=== PATIENT | female | born 1980 | race Caucasian/White ===

== ENCOUNTER 2021-06-28 17:14 | Emergency (ER) | payer OTHER, SELFPAY ==
[2021-06-28 17:35] VITALS: BP 116/69; PULSE 112; RESP 20; TEMP 37.9; O2SAT 98
--- NOTE | 2021-06-28 17:48 | ED.URI ---
HPI - URI/Sore Throat General Stated Complaint: Sore Throat/Fever/Cough Time Seen by Provider: 06/28/21 18:29 Source: patient and RN notes reviewed Mode of arrival: ambulatory Limitations: no limitations History of Present Illness HPI Narrative: 40-year-old female presents with concern for fever, sore throat, cough, body aches. She reports exposure to Covid. She reports she is a smoker. She reports no relief with [id number] medications. She denies shortness of breath, nausea, vomiting, diarrhea. MD elicited complaint: cough and sore throat Related Data Allergies Allergy/AdvReac Type Severity Reaction Status Date / Time adhesive Allergy Rash Verified 06/28/21 18:38 egg Allergy Hives Verified 06/28/21 18:38 latex Allergy Rash Verified 06/28/21 18:38 Review of Systems Review of Systems: CONSTITUTIONAL: Reports malaise, fever. Denies chills, sweats EYES: Denies visual changes, redness, or discharge. ENT: Reports rhinorrhea, sore throat, ear pain. Denies congestion, sinus pain CARDIOVASCULAR: Denies chest pain, palpitations, or edema. RESPIRATORY: Reports cough. Denies dyspnea. GASTROINTESTINAL: Denies abdominal pain, nausea, vomiting, diarrhea SKIN: Denies rash or itching. MUSCULOSKELETAL: Reports myalgia. NEUROLOGIC: Denies headache. All systems reviewed & are unremarkable except as noted in HPI and below PMFSH Comments At time of signature, agree with nursing past medical, surgical, social and family history. There is no relevant family history pertinent to the presenting complaint Exam Narrative: GENERAL: Nontoxic-appearing, well-nourished, and in no acute distress. HEAD: Normocephalic EYES: PERRLA, conjunctivae clear ENT: Nares clear, clear discharge. Mucous membranes moist. TM pearly ryan with sharp light reflex bilaterally; no tragal tenderness. Oropharynx not erythematous without lesions. Tonsils not enlarged and without exudate, no drooling, no hoarseness, no trismus, uvula midline. NECK: Supple. No lymphadenopathy CHEST: Clear to auscultation, breath sounds equal. No wheezing, rhonchi, rales, or stridor. No respiratory distress, speaks in full sentences. HEART: Regular rate and rhythm. No murmur heard. SKIN: Warm, dry, no rash. NEURO: Alert and oriented x3. PSYCH: Normal mood and affect Course Course Emergency Course: Patient is aware of diagnosis, understands and agrees to treatment plan. Anticipatory guidance given. Patient agrees to follow-up as directed and is aware of reasons to seek care at the emergency department. Portions of this record may have been created with voice recognition software Vital Signs Vital signs: Vital Signs Temperature 100.2 F H 06/28/21 17:35 Pulse Rate 112 H 06/28/21 17:35 Respiratory Rate 20 06/28/21 17:35 Blood Pressure 116/69 06/28/21 17:35 Pulse Oximetry 98 06/28/21 17:35 Temperature 100.2 F H 06/28/21 17:35 Pulse Rate 112 H 06/28/21 17:35 Respiratory Rate 20 06/28/21 17:35 Blood Pressure 116/69 06/28/21 17:35 Pulse Oximetry 98 06/28/21 17:35 Reviewed. MDM - URI/Sore Throat MDM Narrative Medical decision making narrative: Differential diagnosis considered: Larry virus, strep pharyngitis, allergic rhinitis, upper respiratory tract infection, sinusitis, rhinosinusitis, nasopharyngitis. viral pharyngitis, otitis media, otitis externa, pneumonia, bronchitis, viral cough syndrome, viral syndrome, and influenza. Exam findings show no acute concerns or changes; patient is non-toxic appearing and is in no distress. Patient is appropriate for outpatient treatment and follow-up. Lab Data Attestation: I reviewed the patient's lab results. Critical Care Time Critical Care Time Critical Care Time: No Discharge Plan Discharge Clinical Impression: COVID-19 Patient Disposition: Home, Self-Care Condition: Stable Instructions: How to Recover from COVID-19 at Home (ED) Additional Instructions: Your rapid COVID test was positive
== END 2021-06-28 18:45 | disposition home or self-care (01) ==
PROVIDERS: Emergency Provider Nurse Practitioner
DX: U07.1 COVID-19 (principal); G71.00 Muscular dystrophy, unspecified
CPT/HCPCS: 87081; 87426; 87804; 87880; 99213; C9803; G0463